=== PATIENT | female | born 1955 | race African-American/Black ===

== ENCOUNTER 2019-08-13 18:06 | Emergency (ER) | payer MEDICARE, MEDICAID ==
[~2019-08-13] VITALS: Ht 170.2 cm; Wt 80.0 kg
[2019-08-13] MEDS ORDERED: COR3 PO (18:13)
[2019-08-13] MEDS ORDERED: NIFE20CA PO (18:13)
[2019-08-13 19:22] LABS: CHLORIDE 95 mEq/L (98-107)
[2019-08-13 19:24] LABS: BASOPHILS % 1.2 % (0.0-2.0); EOSINOPHILS % 0.9 % (0.0-5.0); HEMATOCRIT. 37.1 % (36.0-48.0); HEMOGLOBIN. 12.3 g/dL (12.0-16.0); LYMPHOCYTES % 22.9 % (20.0-50.0); MEAN CORPUSCULAR HEMOGLOBIN 30.1 pg (28.0-32.0); MEAN CORPUSCULAR VOLUME 90.9 fL (81.0-99.0); MEAN PLATELET VOLUME 9.3 fl (7.4-10.4); MONOCYTES % 14.2 % (2.0-8.0); NEUTROPHILS % 60.8 % (40.0-76.0); PLATELET 110 x1000/uL (130-400); RED BLOOD CELL COUNT 4.08 mill/uL (4.2-5.4); RED CELL DISTRIBUTION WIDTH 17.4 % (11.6-14.6)
[2019-08-13] MEDS ORDERED: ALBUTEROL (0.083%) 2.5MG/3ML NEB HHN ONE (20:00)
[2019-08-14] MEDS ORDERED: FUROSEMIDE 40MG/4ML VIAL IV SCH (04:00)
[2019-08-14 08:17] VITALS: BP 107/80
[2019-08-14] MEDS ORDERED: LISINOPRIL 20MG TABLET PO SCH (09:00)
== END 2019-08-14 08:19 | disposition left against medical advice (07) ==
LOC: ER 18:06 → ENRESERV 08-14 14:11 → CANRESERV 08-14 14:11 → CANBEDREQ 08-14 19:30
DX: R06.03 Acute respiratory distress (principal); E87.70 Fluid overload, unspecified; I12.0 Hypertensive chronic kidney disease with stage 5 chronic kidney disease or end stage renal disease; N18.6 End stage renal disease; J45.909 Unspecified asthma, uncomplicated; Z99.2 Dependence on renal dialysis
CPT/HCPCS: 36415; 71045; 80053; 83880; 84484; 85025; 93005; 94640; 96374; 99284; J1940; J7611